=== PATIENT | female | born 1955 ===

== ENCOUNTER → 2023-10-14 | Outpatient (CLI) | payer MEDICARE, OTHER ==
[2023-10-14 21:13] LABS: Adenovirus F 40/41 Not Detected (NOT DETECT); Astrovirus Not Detected (NOT DETECT); Campylobacter Sp Not Detected (NOT DETECT); Cryptosporidium Not Detected (NOT DETECT); Cyclospora Cayetanensis Not Detected (NOT DETECT); E. Coli O157 Not Detected (NOT DETECT); Entamoeba Histolytica Not Detected (NOT DETECT); Enteroaggregative E. coli-EAEC Not Detected (NOT DETECT); Enteropathogenic E. coli-EPEC Not Detected (NOT DETECT); Enterotoxigenic E. coli-ETEC Not Detected (NOT DETECT); Giardia Lamblia Not Detected (NOT DETECT); Norovirus GI/GII Not Detected (NOT DETECT); Plesiomonas Shigelloides Not Detected (NOT DETECT); Rotavirus A Not Detected (NOT DETECT); Salmonella Sp Not Detected (NOT DETECT); Sapovirus Not Detected (NOT DETECT); Shiga Toxin-prod E. coli-STEC Not Detected (NOT DETECT); Shigella/Enteroin E. coli-EIEC Not Detected (NOT DETECT); Vibrio Cholerae Not Detected (NOT DETECT); Vibrio Sp Not Detected (NOT DETECT); Yersinia Enterocolitica Not Detected (NOT DETECT)
[2023-10-18 04:15] LABS: CALPROTECTIN,FECAL 16 ug/g (<=49)
== END ==
LOC: LAB 08:29 → LAB SHORT 08:29
PROVIDERS: Nurse Practitioner Family
DX: K52.9 Noninfective gastroenteritis and colitis, unspecified (principal)
CPT/HCPCS: 83993; 87507

== ENCOUNTER 2024-01-20 09:06 | Day surgery (SDC) | payer MEDICARE, OTHER ==
[~2024-01-20] VITALS: Ht 162.6 cm; Wt 80.9 kg
[~2024-01-20 09:06] MED LIST: Lactated Ringer's 1,000 ML IV ONE; propofoL 50 ML IV ONE
[2024-01-20] MEDS ORDERED: IRBE150 (09:36)
[2024-01-20] MEDS ORDERED: ESTR2 (09:36)
[2024-01-20] MEDS ORDERED: Amlodipine Bes2.5 MG (09:37)
[2024-01-20] MEDS ORDERED: Lactated Ringer's 1,000 ML IV ONE (10:23)
== END 2024-01-20 11:10 | disposition home or self-care (01) ==
LOC: ORSCSDS 09:06
PROVIDERS: Specialist
PROC: 0DBE8ZX Excision of Large Intestine, Via Natural or Artificial Opening Endoscopic, Diagnostic (ICD-10-PCS; principal; 2024-01-20 10:45)
PROC: 0DB68ZX Excision of Stomach, Via Natural or Artificial Opening Endoscopic, Diagnostic (ICD-10-PCS; principal; 2024-01-20 10:45)
PROC: 0DB98ZX Excision of Duodenum, Via Natural or Artificial Opening Endoscopic, Diagnostic (ICD-10-PCS; principal; 2024-01-20 10:45)
DX: R10.9 Unspecified abdominal pain (principal); R11.0 Nausea; Z86.0100 Personal history of colon polyps, unspecified; Z85.51 Personal history of malignant neoplasm of bladder; K64.8 Other hemorrhoids; Z86.16 Personal history of COVID-19; Z79.899 Other long term (current) drug therapy
CPT/HCPCS: 88305; 88342; J2704; J7120

== ENCOUNTER → 2024-12-18 | Outpatient (CLI) | payer MEDICARE, OTHER ==
[~2024-12-18] MED LIST changes: +Amlodipine Bes2.5 MG; +ESTR2; +IRBE150; -Lactated Ringer's 1,000 ML IV ONE; -propofoL 50 ML IV ONE
== END ==
LOC: LAB 15:23 → LAB SHORT 15:23 → LAB FUT 12-13 15:40 → EDSTATUS 12-13 15:40
DX: R82.90 Unspecified abnormal findings in urine (principal); C67.9 Malignant neoplasm of bladder, unspecified
CPT/HCPCS: 88108